=== PATIENT | female | born 1950 | race Caucasian/White ===

== ENCOUNTER 2017-04-05 07:17 | Day surgery (SDC) | payer MEDICARE, BC ==
[~2017-04-05 07:17] MED LIST: PHENYLEPHRINE 2.5% OPHTH 2 ML DROPS ONE
[2017-04-05] MEDS ORDERED: CYCLOPENTOLATE 1% OPHTH DROPS 2 ML OPTH ONE (07:30)
[2017-04-05] MEDS ORDERED: PHENYLEPHRINE 2.5% OPHTH 2 ML DROPS OPTH ONE (07:30)
[2017-04-05] MEDS ORDERED: PROPARACAINE 0.5% OPHTH DROPS 15 ML OPTH ONE ×3 (07:30→08:49)
[2017-04-05] MEDS ORDERED: KETOROLAC 0.45% OPHTH DROPS OPTH ONE (07:30)
[2017-04-05] MEDS ORDERED: MIDAZOLAM 2 MG/2 ML VIAL IVP ONE (07:35)
[2017-04-05] MEDS ORDERED: LACTATED RINGERS 500 ML IV ONE (07:36)
[2017-04-05] MEDS ORDERED: TIMOLOL 0.5% OPHTH DROPS OPTH ONE ×2 (08:34→08:49)
[2017-04-05] MEDS ORDERED: BRIMONIDINE 0.2% OPHTH DROPS 5 ML OPTH ONE ×2 (08:34→08:48)
[2017-04-05] MEDS ORDERED: EPINEPHrine 1 MG/ML AMP IVP ONE ×4 (08:34→08:49)
[2017-04-05] MEDS ORDERED: CHONDR SULF/HYALURONATE SYRINGE IO ONE ×2 (08:34→08:49)
[2017-04-05] MEDS ORDERED: BSS/LIDOCAINE/EPINEPHRINE 1 ML SYRINGE IO ONE ×3 (08:35→08:49)
[2017-04-05] MEDS ORDERED: TRIAMCIN/MOXIFLOX/VANCO 1 ML VIAL IO ONE ×3 (08:35→08:49)
== END 2017-04-05 07:18 | disposition home or self-care (01) ==
PROC: 08RJ3JZ Replacement of Right Lens with Synthetic Substitute, Percutaneous Approach (ICD-10-PCS; principal; 2017-04-05 08:30)
DX: H25.811 Combined forms of age-related cataract, right eye (principal); E78.00 Pure hypercholesterolemia, unspecified; M35.00 Sjogren syndrome, unspecified; I48.91 Unspecified atrial fibrillation; Z82.3 Family history of stroke; Z83.511 Family history of glaucoma; Z90.49 Acquired absence of other specified parts of digestive tract
CPT/HCPCS: 66984; A9270; V2632

== ENCOUNTER 2023-04-20 08:00 | Outpatient (CLI) | payer MEDICARE | END 2023-04-20 23:59 | disposition home or self-care (01) | LOC: LAB.N 08:00 | PROVIDERS: ATTEND Physician Assistant | DX: R05.9 Cough, unspecified (principal); Z20.822 Contact with and (suspected) exposure to COVID-19 ==

== ENCOUNTER 2023-04-20 19:46 | Outpatient (CLI) | payer MEDICARE, OTHER ==
--- NOTE | 2023-04-20 20:34 | XRAY Report ---
PROCEDURE: Chest 2 View X-Ray INDICATIONS: PNEUMONIA, COUGH TECHNIQUE: 2 views of the chest were acquired. COMPARISON: None. FINDINGS: Surgical changes and devices: Cholecystectomy clips are seen. Lungs and pleura: Infiltrates can be seen involving bilateral lung bases. These are poorly localized on the lateral view, although infiltrate can be seen both anteriorly and posteriorly. Mediastinum: The aorta is prominent and tortuous. The cardiac contours are within normal limits. Bones and chest wall: No suspicious bony lesions. Age-appropriate degenerative changes are seen. Atherosclerotic calcification is seen. IMPRESSION: Infiltrates are seen at both lung bases. Please consider a dedicated follow-up chest CT with IV contrast for further evaluation. Reviewed by: Fred Elizabeth MD on 04/20/2023 7:33 PM EMILY Approved by: Fred Elizabeth MD on 04/20/2023 7:33 PM EMILY Station ID: [id number]
== END 2023-04-20 19:47 | disposition home or self-care (01) ==
LOC: DI 19:46
PROVIDERS: ATTEND Physician Assistant
DX: J18.9 Pneumonia, unspecified organism (principal)

== ENCOUNTER 2023-04-21 19:57 | Emergency (ER) | payer MEDICARE, OTHER ==
--- OUTSIDE RECORDS SUMMARY | 2023-04-21 20:09 | EXTERNAL MEDICAL SUMMARY RPT | Continuity of Care Document ---
Author Name Unknown Address [address] [place] [address] Phone Organization [facility] Address [address] [place] [address] Phone Care Team Providers Care Disability Insurance Claim Examiner Name Role Phone Unavailable Unavailable Unavailable William Storm Pa-C Unavailable Unavailsharmin Granados, Test Results Unavailable Unavailable Roberta, Test Results Unavailable Unavailable Allergies and Intolerances date description facility type (no date) VALTREX All (unknown) (no date) NSAIDS All (unknown) (no date) IODINE All (unknown) Medications date description facility 2023 00:00 apixaban All 2023-04-21 00:00 apixaban All 2023-04-21 00:00 apixaban All 2023 00:00 tramadol All 2023-04-21 00:00 tramadol All 2023-04-21 00:00 tramadol All 2023 00:00 metoprolol succinate All 2023-04-21 00:00 metoprolol succinate All 2023-04-21 00:00 metoprolol succinate All 2023 00:00 doxycycline monohydrate All 2023 00:00 doxycycline monohydrate All 2023 00:00 doxycycline monohydrate All 2023 00:00 doxycycline monohydrate All 2023 00:00 doxycycline monohydrate All 2023 00:00 doxycycline monohydrate All 2023 00:00 apixaban All 2023-04-21 00:00 apixaban All 2023-04-21 00:00 apixaban All 2023 00:00 telmisartan All 2023-04-21 00:00 telmisartan All 2023-04-21 00:00 telmisartan All 2023 00:00 potassium citrate All 2023-04-21 00:00 potassium citrate All 2023-04-21 00:00 potassium citrate All 2023 00:00 apixaban All 2023-04-21 00:00 apixaban All 2023-04-21 00:00 apixaban All 2023 00:00 amlodipine All 2023-04-21 00:00 amlodipine All 2023-04-21 00:00 amlodipine All 2023 00:00 carbidopa-levodopa All 2023-04-21 00:00 carbidopa-levodopa All 2023-04-21 00:00 carbidopa-levodopa All 2023 00:00 telmisartan All 2023-04-21 00:00 telmisartan All 2023-04-21 00:00 telmisartan All 2023 00:00 amlodipine All 2023-04-21 00:00 amlodipine All 2023-04-21 00:00 amlodipine All 2023 00:00 carbidopa-levodopa All 2023-04-21 00:00 carbidopa-levodopa All 2023-04-21 00:00 carbidopa-levodopa All 2023 00:00 metoprolol succinate All 2023-04-21 00:00 metoprolol succinate All 2023-04-21 00:00 metoprolol succinate All 2023 00:00 amlodipine All 2023-04-21 00:00 amlodipine All 2023-04-21 00:00 amlodipine All 2023 00:00 ezetimibe All 2023-04-21 00:00 ezetimibe All 2023-04-21 00:00 ezetimibe All 2023 00:00 telmisartan All 2023-04-21 00:00 telmisartan All 2023-04-21 00:00 telmisartan All 2023 00:00 ezetimibe All 2023-04-21 00:00 ezetimibe All 2023-04-21 00:00 ezetimibe All 2023 00:00 tramadol All 2023-04-21 00:00 tramadol All 2023-04-21 00:00 tramadol All 2023 00:00 atorvastatin All 2023-04-21 00:00 atorvastatin All 2023-04-21 00:00 atorvastatin All 2023 00:00 potassium citrate All 2023-04-21 00:00 potassium citrate All 2023-04-21 00:00 potassium citrate All 2023 00:00 atorvastatin All 2023-04-21 00:00 atorvastatin All 2023-04-21 00:00 atorvastatin All 2023 00:00 pregabalin All 2023-04-21 00:00 pregabalin All 2023-04-21 00:00 pregabalin All 2023 00:00 doxycycline monohydrate All 2023 00:00 doxycycline monohydrate All 2023 00:00 doxycycline monohydrate All 2023 00:00 potassium citrate All 2023-04-21 00:00 potassium citrate All 2023-04-21 00:00 potassium citrate All 2023 00:00 telmisartan All 2023-04-21 00:00 telmisartan All 2023-04-21 00:00 telmisartan All 2023 00:00 amlodipine All 2023-04-21 00:00 amlodipine All 2023-04-21 00:00 amlodipine All 2023 00:00 atorvastatin All 2023-04-21 00:00 atorvastatin All 2023-04-21 00:00 atorvastatin All 2023 00:00 carbidopa-levodopa All 2023-04-21 00:00 carbidopa-levodopa All 2023-04-21 00:00 carbidopa-levodopa All 2023 00:00 atorvastatin All 2023-04-21 00:00 atorvastatin All 2023-04-21 00:00 atorvastatin All 2023 00:00 tramadol All 2023-04-21 00:00 tramadol All 2023-04-21 00:00 tramadol All 2023 00:00 ezetimibe All 2023-04-21 00:00 ezetimibe All 2023-04-21 00:00 ezetimibe All 2023 00:00 metoprolol succinate All 2023-04-21 00:00 metoprolol succinate All 2023-04-21 00:00 metoprolol succinate All 2023 00:00 pregabalin All 2023-04-21 00:00 pregabalin All 2023-04-21 00:00 pregabalin All 2023 00:00 pregabalin All 2023-04-21 00:00 pregabalin All 2023-04-21 00:00 pregabalin All 2023 00:00 carbidopa-levodopa All 2023-04-21 00:00 carbidopa-levodopa All 2023-04-21 00:00 carbidopa-levodopa All 2023 00:00 doxycycline monohydrate All 2023 00:00 doxycycline monohydrate All 2023 00:00 doxycycline monohydrate All 2023 00:00 ezetimibe All 2023-04-21 00:00 ezetimibe All 2023-04-21 00:00 ezetimibe All 2023 00:00 apixaban All 2023-04-21 00:00 apixaban All 2023-04-21 00:00 apixaban All 2023 00:00 tramadol All 2023-04-21 00:00 tramadol All 2023-04-21 00:00 tramadol All 2023 00:00 metoprolol succinate All 2023-04-21 00:00 metoprolol succinate All 2023-04-21 00:00 metoprolol succinate All 2023 00:00 potassium citrate All 2023-04-21 00:00 potassium citrate All 2023-04-21 00:00 potassium citrate All 2023 00:00 pregabalin All 2023-04-21 00:00 pregabalin All 2023-04-21 00:00 pregabalin All 2023 00:00 emhivozrjbwd-qfnx-iyack acid Al l 2023-04-21 00:00 olzmdtxhctci-xrjo-vccml acid Al l 2023-04-21 00:00 fstturnplebi-kald-fcjef acid Al l 2023 00:00 methylcellulose (laxative All 2023-04-21 00:00 methylcellulose (laxative All 2023-04-21 00:00 methylcellulose (laxative All 2023 00:00 cholecalciferol (vitamin d3 All 2023-04-21 00:00 cholecalciferol (vitamin d3 All 2023-04-21 00:00 cholecalciferol (vitamin d3 All Problems date description facility 2023 00:00 [facility] acquired pneumonia [facility] 2023 00:00 Community acquired pneumonia [facility] 2023 00:00 Community acquired pneumonia [facility] 2023 00:00 Cough All 2023 00:00 Cough All 2023 00:00 Cough All 2023 00:00 Pneumonia, unspecified organism All 2023 00:00 Pneumonia, unspecified organism All 2023 00:00 Pneumonia, unspecified organism All 2023 00:00 Other specified cough All 2023 00:00 Other specified cough All 2023 00:00 Other specified cough All Procedures date description facility 2023 00:00 Visit Code Hold All 2023 00:00 Visit Code Hold All 2023 00:00 Visit Code Hold All 2023 00:00 POC SARCOV2&INF A&B&RSV AMP PB All 2023 00:00 POC SARCOV2&INF A&B&RSV AMP PB All 2023 00:00 POC SARCOV2&INF A&B&RSV AMP PB All Social History date description facility 2023 00:00 Unknown if ever smoked All 2023-04-21 00:00 Unknown if ever smoked All 2023-04-21 00:00 Unknown if ever smoked All Vital Signs date measurement value units 2023 00:00 BMI 25.50 kg/m2 2023 00:00 BP_diastolic 73 mmHg 2023 00:00 BP_systolic 159 mmHg 2023 00:00 heart_rate 90 /min 2023 00:00 height_metric 162.56 cm 2023 00:00 height_standard 64 in 2023 00:00 respiration_rate 16 /min 2023 00:00 temperature_metric 37.72 C 2023 00:00 temperature_standard 99.9 F 2023 00:00 weight_metric 67.13 kg 2023 00:00 weight_standard 148 lb
[2023-04-21 20:30] LABS: BASOPHILS # (AUTO) 0.1 10^3/uL (0.0-0.1); BASOPHILS % (AUTO) 0.4 %; EOSINOPHILS % (AUTO) 0.3 %; HCT - HEMATOCRIT 35.5 % (37.0-47.0); HGB - HEMOGLOBIN 11.4 g/dL (12.0-16.0); LYMPHOCYTES # (AUTO) 1.5 10^3/uL (1.5-3.5); LYMPHOCYTES % (AUTO) 13.8 %; MEAN CORPUSCULAR HEMOGLOBIN 29.5 pg (27.0-31.0); MEAN CORPUSCULAR HGB CONC 32.1 g/dL (32.0-36.0); MEAN CORPUSCULAR VOLUME 91.7 fL (81.0-99.0); MEAN PLATELET VOLUME 9.7 fL (7.9-10.8); MONOCYTES # (AUTO) 1.3 10^3/uL (0.0-1.0); MONOCYTES % (AUTO) 11.2 %; NEUTROPHILS # (AUTO) 8.2 10^3/uL (1.5-6.6); NEUTROPHILS % (AUTO) 73.5 %; PLT - PLATELET COUNT 198 10^3/uL (130-450); RED BLOOD COUNT 3.87 10^6/uL (4.20-5.40); RED CELL DISTRIBUTION WIDTH 13.3 % (12.0-15.0); WHITE BLOOD COUNT 11.2 x10^3/uL (4.8-10.8)
--- NOTE | 2023-04-21 20:30 | ED Physician Documentation ---
PD HPI DYSPNEA - Stated complaint Stated Complaint: SOA - Chief complaint Chief Complaint: Resp - History obtained from History obtained from: Patient - Additional information Additional information: HPI from patient. patient complains of five days of symptoms, starting with generalized myalgias. 2 to 3 days ago, she developed fever and moist cough. She was evaluated in an outpatient clinic and had a chest x-ray performed which revealed pneumonia. she was prescribed doxycycline and has taken two doses thus far. She presents the emergency department at this time due to ongoing symptoms, as well as pulse ox noted at home to drop to as well as the mid-80s (had finger pulse oximeter at home and was advised to monitor for low pulse ox readings. she notes that the drops and pulse ox have not reliably correlated with increased symptoms, and that her lower pulse ox readings. Candis been at rest and consistently improved with ambulation. Review of Systems Constitutional: reports: Fever, Chills, Myalgias Cardiac: reports: Reviewed and negative Respiratory: reports: Dyspnea, Cough. denies: Hemoptysis, Wheezing Neurologic: denies: Headache PD PAST MEDICAL HISTORY - Past Medical History Cardiovascular: Hypertension, Atrial fibrillation Respiratory: None Endocrine/Autoimmune: None GI: None : None, Renal insuffiency, Other HEENT: None Psych: None Musculoskeletal: None, Fibromyalgia, Other Derm: None, Rosacea - Past Surgical History General: Cholecystectomy, Colonoscopy, EGD HEENT: Cataracts, Tonsil/Adenoidectomy - Present Medications Home Medications: Ambulatory Orders Medication Instructions Recorded Confirmed Aspirin [Aspir-Low] 81 mg PO DAILY 02/14/17 03/29/17 Atorvastatin [Lipitor] 10 mg PO DAILY 02/14/17 04/05/17 Metoprolol Succinate [Toprol Xl] 25 mg PO BID 02/14/17 04/05/17 Multivitamin/Iron/Folic Acid 1 each PO DAILY 02/14/17 04/05/17 [Centrum Women Tablet] Riley-3/Dha/Epa/Fish Oil [Fish Oil 1 each PO DAILY 02/14/17 04/05/17 EC 1,200 mg Softgel] Potassium Chloride [K-Tab ER] 15 meq PO BID 02/14/17 04/05/17 Valsartan/Hydrochlorothiazide 1 each PO DAILY 02/14/17 04/05/17 [Diovan Hct 160-25 mg Tablet] traMADol [Ultram] 100 mg PO Q6H 02/14/17 04/05/17 Azithromycin 250 mg PO DAILY #6 tablet 04/21/23 - Allergies Allergies/Adverse Reactions: Allergies Allergy/AdvReac Type Severity Reaction Status Date / Time povidone-iodine Allergy Rash Verified 04/05/17 07:30 [From Betadine] soap [From Betadine] Allergy Rash Verified 04/05/17 07:30 NSAIDS (Non-Steroidal AdvReac Unknown Verified 04/21/23 20:06 Anti-Inflamma valacyclovir HCl * AdvReac Emesis Verified 03/29/17 18:19 [From Valtrex] PD ED PE NORMAL - Vitals Vital signs reviewed: Yes - General General: Alert and oriented X 3, No acute distress, Well developed/nourished, Other (voice is midly hoarse) - HEENT HEENT: Moist mucous membranes - Cardiac Cardiac: RRR - Respiratory Respiratory: No respiratory distress, Other (good air flow bilaterally with mild scattered rhonchi in lower lung mon bilaterally (no absent lung sounds to suggest consolidation)) - Extremities Extremities: No edema Results - Vitals Vitals: Vital Signs - 24 hr 04/21/23 22:00 Temperature 36.8 C Heart Rate 82 Respiratory 25 H Rate Blood Pressure 124/51 L O2 Saturation 96 Oxygen O2 Source Room air - Labs Labs: Laboratory Tests 04/21/23 04/21/23 04/21/23 20:20 20:20 20:20 WBC 11.2 H RBC 3.87 L Hgb 11.4 L Hct 35.5 L MCV 91.7 MCH 29.5 MCHC 32.1 RDW 13.3 Plt Count 198 MPV 9.7 Neut # (Auto) 8.2 H Lymph # (Auto) 1.5 [place] # (Auto) 1.3 H Eos # (Auto) 0.0 Baso # (Auto) 0.1 Absolute Nucleated RBC 0.00 Nucleated RBC % 0.0 Sodium 133 L Potassium 4.1 Chloride 99 L Carbon Dioxide 24 Anion Gap 10.0 BUN 30 H Creatinine 2.3 H Estimated GFR (MDRD) 21 L Glucose 144 H Calcium 7.8 L Total Bilirubin 1.1 H AST 172 H ALT 255 H Alkaline Phosphatase 249 H B-Natriuretic Peptide 293 H Total Protein 6.5 L Albumin 3.0 L Globulin 3.5 Albumin/Globulin Ratio 0.9 L Nasal Adenovirus (PCR) Nasal B. parapertussis DNA (PCR) Nasal Coronavir 229E PCR Nasal Coronavir HKU1 PCR Nasal Coronavir NL63 PCR Nasal Coronavir OC43 PCR Nasal Enterovir/Rhinovir PCR Nasal Influenza B PCR Nasal Influenza A PCR Nasal Parainfluen 1 PCR Nasal Parainfluen 2 PCR Nasal Parainfluen 3 PCR Nasal Parainfluen 4 PCR Nasal RSV (PCR) Nasal B.pertussis DNA PCR Nasal C.pneumoniae (PCR) Gallito Human Metapneumo PCR Nasal M.pneumoniae (PCR) Nasal SARS-CoV-2 (PCR) 04/21/23 20:20 WBC RBC Hgb Hct MCV MCH MCHC RDW Plt Count MPV Neut # (Auto) Lymph # (Auto) [place] # (Auto) Eos # (Auto) Baso # (Auto) Absolute Nucleated RBC Nucleated RBC % Sodium Potassium Chloride Carbon Dioxide Anion Gap BUN Creatinine Estimated GFR (MDRD) Glucose Calcium Total Bilirubin AST ALT Alkaline Phosphatase B-Natriuretic Peptide Total Protein Albumin Globulin Albumin/Globulin Ratio Nasal Adenovirus (PCR) NOT DETECTED Nasal B. parapertussis DNA (PCR) NOT DETECTED Nasal Coronavir 229E PCR NOT DETECTED Nasal Coronavir HKU1 PCR NOT DETECTED Nasal Coronavir NL63 PCR NOT DETECTED Nasal Coronavir OC43 PCR NOT DETECTED Nasal Enterovir/Rhinovir PCR NOT DETECTED Nasal Influenza B PCR NOT DETECTED Nasal Influenza A PCR NOT DETECTED Nasal Parainfluen 1 PCR NOT DETECTED Nasal Parainfluen 2 PCR NOT DETECTED Nasal Parainfluen 3 PCR NOT DETECTED Nasal Parainfluen 4 PCR NOT DETECTED Nasal RSV (PCR) NOT DETECTED Nasal B.pertussis DNA PCR NOT DETECTED Nasal C.pneumoniae (PCR) NOT DETECTED Gallito Human Metapneumo PCR NOT DETECTED Nasal M.pneumoniae (PCR) NOT DETECTED Nasal SARS-CoV-2 (PCR) NOT DETECTED PD Medical Decision Making - ED course Complexity details: reviewed results, re-evaluated patient, considered differential, d/w patient ED course: During my H&P, patient is in NAD and speaks in complete sentences. She has good airflow on the pulmonary exam (auscultation), and her pulse ox on room air with a good Plath is predominantly in the 94 to 96% range. There were brief, few dips into the lower 90s which improved rapidly and without any intervention. There was mention on yesterday's chest x-ray reading by the radiologist of consideration for CT with intravenous contrast for more information regarding the findings of bilateral pulmonary infiltrates. Unfortunately, this cannot be undertaken for 2 reasons. Patient's GFR is 21 (no previous labs to compare, but patient indicates to me that she is well aware of stage III kidney disease to the point that she was told to never take NSAIDs specifically for this reason), and patient also insists that she was told to never have intravenous contrast because of a topical Povidine-iodine reaction. In any event, I do not see the need/indication for emergent CT of the chest at this time. Her CBC has no concerning nor remarkable findings; mild leukocytosis noted with white blood cell count of 11.2. She has mildly elevated LFTs of uncertain significance and uncertain chronicity. The bilirubin, AST, and ALT are all elevated but very mildly so; in discussing results with the patient, she says she does seem to recall having been told in the past about mildly elevated liver function tests. This can be followed up in the outpatient setting. BNP is noted to be mildly elevated at 293. she is given 1 g of ceftriaxone intravenously in the emergency department. Results discussed with patient, return precautions also are discussed. In order to broaden the antibiotic coverage, I also am prescribing a five day course of Zithromax to be taken in addition to the doxycycline that shes already taking Departure - Departure Disposition: 01 Home, Self Care Clinical Impression: Pneumonia Qualifiers: Pneumonia type: due to unspecified organism Laterality: bilateral Lung location: unspecified part of lung Qualified Code(s): J18.9 - Pneumonia, unspecified organism Condition: Good Instructions: ED Pneumonia Adult Prescriptions: Azithromycin 250 mg PO DAILY #6 tablet Comments: The only findings on tondes's blood test that were of note were your kidney function tests as well as your liver function tests; as we discussed, I do not have any previous such results in my system to compare, but you have indicated that these are not new abnormalities for you. You were given a dose of Rocephin (ceftriaxone, an antibiotic) through the IV. This was given to speed up the antibiotic effect in fighting off the pneumonia. It is a different antibiotic than the one you are already taking. Additionally, I have electronically submitted a prescription for a different antibiotic (azithromycin) to the [facility] pharmacy in [place]. You should pick this up and start it tomorrow morning IN ADDITION to CONTINUING the antibiotic (doxycycline) that you are currently taking. Discharge Date/Time: 04/21/23 22:36
[2023-04-21 20:58] LABS: ALBUMIN/GLOBULIN RATIO 0.9 (1.0-2.2); BILIRUBIN,TOTAL 1.1 mg/dL (0.2-1.0); CALCIUM 7.8 mg/dL (8.5-10.3); CREATININE 2.3 mg/dL (0.4-1.0); POTASSIUM 4.1 mmol/L (3.5-5.0); TOTAL PROTEIN 6.5 g/dL (6.7-8.2)
[2023-04-21 21:17] LABS: B. PARAPERTUSSIS- RESP PCR PAN NOT DETECTED; B. PERTUSSIS- RESP PCR PANEL NOT DETECTED; C. PNEUMONIAE- RESP PCR PANEL NOT DETECTED; CORONAVIRUS 229E-RESP PCR NOT DETECTED; CORONAVIRUS HKU1-RESP PCR NOT DETECTED; CORONAVIRUS NL63-RESP PCR NOT DETECTED; CORONAVIRUS OC43-RESP PCR NOT DETECTED; HUMAN METAPNEUMOVIRUS NOT DETECTED; INFLUENZA A- RESP PCR PANEL NOT DETECTED; INFLUENZA B - RESP PCR PANEL NOT DETECTED; M. PNEUMONIAE- RESP PCR PANEL NOT DETECTED; PARAINFLUENZA VIRUS 1 NOT DETECTED; PARAINFLUENZA VIRUS 2 NOT DETECTED; PARAINFLUENZA VIRUS 3 NOT DETECTED; PARAINFLUENZA VIRUS 4 NOT DETECTED; RHINOVIRUS/ENTEROVIRUS NOT DETECTED; RSV- RESP PCR PANEL NOT DETECTED; SARS-CoV-2 -RESP PCR PANEL NOT DETECTED
[2023-04-21 22:02] VITALS: BP 124/51
[2023-04-21] MEDS ORDERED: cefTRIAXone 1 GM VIAL IVP STA (22:03)
== END 2023-04-21 22:36 | disposition home or self-care (01) ==
LOC: ED 19:57
DX: J18.9 Pneumonia, unspecified organism (principal); I10 Essential (primary) hypertension; Z20.822 Contact with and (suspected) exposure to COVID-19
CPT/HCPCS: 36415; 80053; 83880; 85025; 87633; 93005; 96374; 99284